=== PATIENT | female | born 1985 | race Caucasian/White ===

== ENCOUNTER → 2017-07-22 | Outpatient (CLI) | payer OTHER ==
--- NOTE | 2017-07-22 14:15 | US ---
EXAMINATION TYPE: US pelvic complete DATE OF EXAM: 07/22/2017 COMPARISON: NONE CLINICAL HISTORY: M93.8 Dysfunctional Uterine Bleeding. TECHNIQUE: Transabdominal (TA) Date of LMP: 07/10/17 EXAM MEASUREMENTS: Uterus: 9.3 x 4.0 x 5.7 cm Endometrial Stripe: 0.6 cm Right Ovary: 2.7 x 1.4 x 1.5 cm Left Ovary: 2.4 x 2.0 x 1.8 cm 1. Uterus: Anteverted, somewhat heterogeneous, nabothian cysts noted in cervix 2. Endometrium: wnl 3. Right Ovary: wnl 4. Left Ovary: wnl 5. Bilateral Adnexa: wnl 6. Posterior cul-de-sac: wnl IMPRESSION: No significant finding on transabdominal pelvic ultrasound is seen to account for patient 's symptoms.
[2017-07-22 15:55] LABS: T4, Free (Free Thyroxine) 1.05 ng/dL (0.78-2.19)
== END | disposition home or self-care (01) ==
LOC: RADUSWWP 13:28
PROVIDERS: ATTEND Obstetrics & Gynecology
DX: N93.8 Other specified abnormal uterine and vaginal bleeding (principal)
CPT/HCPCS: 36415; 76856; 84439; 84443

== ENCOUNTER → 2018-01-25 | Outpatient (CLI) | payer BC ==
[2018-01-25 10:56] LABS: Basophils % (A) 1 %; Eosinophils # (A) 0.1 k/uL (0-0.7); Eosinophils % (A) 2 %; HCT 40.3 % (34.0-46.0); HGB 13.5 gm/dL (11.4-16.0); Lymphocytes # (A) 1.2 k/uL (1.0-4.8); Lymphocytes % (A) 18 %; MCH 29.5 pg (25.0-35.0); MCHC 33.6 g/dL (31.0-37.0); MCV 87.7 fL (80.0-100.0); Mean Platelet Volume 6.3; Monocytes # (A) 0.2 k/uL (0-1.0); Monocytes % (A) 4 %; Neutrophils # (A) 5.1 k/uL (1.3-7.7); Neutrophils % (A) 75 %; Platelet Count 262 k/uL (150-450); RBC 4.59 m/uL (3.80-5.40); RDW 12.7 % (11.5-15.5); WBC 6.8 k/uL (3.8-10.6)
[2018-01-25 10:59] LABS: Anion Gap 12 mmol/L; Blood Urea Nitrogen 8 mg/dL (7-17); Calcium 9.7 mg/dL (8.4-10.2); Carbon Dioxide 23 mmol/L (22-30); Chloride 104 mmol/L (98-107); Glucose 131 mg/dL (74-99); Potassium 3.7 mmol/L (3.5-5.1); Sodium 139 mmol/L (137-145)
== END | disposition home or self-care (01) ==
LOC: LABPAT 09:42
PROVIDERS: ATTEND Obstetrics & Gynecology
DX: Z01.812 Encounter for preprocedural laboratory examination (principal); Z01.818 Encounter for other preprocedural examination
CPT/HCPCS: 80048; 85025; 86850; 86900; 86901

== ENCOUNTER 2018-02-02 05:42 | Observation (INO) | payer BC ==
[2018-01-30 11:27] VITALS: BMI 31.1
--- NOTE | 2018-02-01 16:45 | P.HPOB ---
History of Present Illness H&P Date: 02/01/18 Chief Complaint: irregular menses and vaginal prolapse 32 year old presents for TLH with da matt possible anterior/posterior repair and diagnostic cystoscopy. Review of Systems All systems: negative Constitutional: Denies chills, Denies fever Eyes: denies blurred vision, denies pain Ears, nose, mouth and throat: Denies headache, Denies sore throat Cardiovascular: Denies chest pain, Denies shortness of breath Respiratory: Denies cough Gastrointestinal: Denies abdominal pain, Denies diarrhea, Denies nausea, Denies vomiting Genitourinary: Denies dysuria, Denies hematuria Musculoskeletal: Denies myalgias Integumentary: Denies pruritus, Denies rash Neurological: Denies numbness, Denies weakness Psychiatric: Denies anxiety, Denies depression Endocrine: Denies fatigue, Denies weight change Past Medical History Past Medical History: No Reported History Additional Past Medical History / Comment(s): She has had 4 pregancies with 3 normal vaginal deliveries History of Any Multi-Drug Resistant Organisms: None Reported Additional Past Surgical History / Comment(s): Dilation and Curettage Past Anesthesia/Blood Transfusion Reactions: No Reported Reaction Past Psychological History: No Psychological Hx Reported Smoking Status: Never smoker Past Alcohol Use History: None Reported Past Drug Use History: None Reported - Past Family History Mother Family Medical History: No Reported History Medications and Allergies Home Medications Medication Instructions Recorded Confirmed Type No Known Home Medications 04/22/14 01/30/18 History Allergies Allergy/AdvReac Type Severity Reaction Status Date / Time No Known Allergies Allergy Verified 04/22/14 14:01 Exam Osteopathic Statement: *. No significant issues noted on an osteopathic structural exam other than those noted in the History and Physical/Consult. Heart: RRR Lungs: CTAB Abdomen: soft, nontender Extremeties: neg miguel ángel's Assessment and Plan (1) Irregular menses Status: Acute Code(s): N92.6 - IRREGULAR MENSTRUATION, UNSPECIFIED SNOMED Code(s): 35697705 (2) Vaginal prolapse Status: Acute Code(s): N81.10 - CYSTOCELE, UNSPECIFIED SNOMED Code(s): 418819700 Plan: 1. TLH with da matt, possible anterior/posterior repair, diagnostic cystoscopy
[~2018-02-02 05:42] MED LIST: ceFAZolin IN SWFI 2 GM/20 ML SYRINGE IVP ONE
[2018-02-02] MEDS ORDERED: LIDOCAINE 1% 20 ML VIAL (10MG/ML) FOR IV START INTRADERMA PRN (05:43)
[2018-02-02] MEDS ORDERED: SCOPOLAMINE 1.5MG/72HR PATCH TRANSDERM ONE (05:43)
[2018-02-02] MEDS ORDERED: MIDAZOLAM 2 MG/2 ML VIAL IV PRN (05:43)
[2018-02-02] MEDS ORDERED: DEXAMETHASONE SOD PHOSPHATE 10 MG/ML 1 ML VIAL IV ONE (05:43)
[2018-02-02] MEDS ORDERED: ONDANSETRON 4 MG/2 ML VIAL IVP ONE ×2 (05:43→09:56)
[2018-02-02] MEDS: LACTATED RINGERS 1,000 ML IV SCH ×4 (06:26→20:30)
[2018-02-02] MEDS ORDERED: LACTATED RINGERS 1,000 ML IV ONE (08:21)
[2018-02-02] MEDS ORDERED: BACITRACIN 500 UNIT/GM OINT 28.4 GM TUBE TOPICAL ONE ×2 (08:29→09:04)
[2018-02-02] MEDS ORDERED: VASOPRESSIN 20 UNIT/ML 1 ML VIAL SQ ONE ×2 (09:02)
[2018-02-02] MEDS: HYDROmorphone 0.5 MG/0.5 ML SYRINGE IVP PRN ×4 (09:54→10:20)
[2018-02-02] MEDS ORDERED: METOCLOPRAMIDE 5 MG/ML 2 ML VIAL IVP PRN (10:33)
[2018-02-02] MEDS ORDERED: Acetaminophen-Codeine 300-30mg TAB PO PRN (10:33)
[2018-02-02] MEDS ORDERED: ZOLPIDEM 5 MG TAB PO PRN (10:33)
[2018-02-02] MEDS ORDERED: diphenhydrAMINE 50 MG/ML 1 ML VIAL IVP PRN (10:33)
[2018-02-02] MEDS ORDERED: SIMETHICONE 80 MG CHEWABLE PO PRN (10:33)
--- NOTE | 2018-02-02 12:46 | P.OP ---
Date of Procedure: 02/02/18 Preoperative Diagnosis: 1. menorrhagia 2. uterine prolapse, rectocele Postoperative Diagnosis: same Procedure(s) Performed: TLH with da cindi, posterior repair, diagnostic cystoscopy Anesthesia: NILSA Surgeon: Magda Polk Biology Lecturer #1: Adam James Estimated Blood Loss (ml): 75 IV fluids (ml): 1,500 Urine output (ml): 300 Pathology: other (uterus, cervix, vaginal mucosa) Condition: stable Disposition: PACU Operative Findings: normal uterus, tubes and ovaries, rectocele Description of Procedure: Patient taken the operating room where general anesthesia was obtained without difficulty. She is prepped and draped in normal sterile fashion dorsal lithotomy position, legs placed in the Jose stirrups. Weighted speculum placed in the vagina and the anterior lip the cervix was grasped with single- tooth tenaculum. The uterus sounded to 9 cm and the cervix diameter was 3 cm. The appropriate manipulator tip and ring were placed on the Mariajose manipulator. The Mariajose manipulator was then placed in the uterus. Jamison catheter was also placed. Attention was then turned to the abdomen and gloves were changed. A 5 mm supraumbilical incision was made the scalpel and a 5 mm optical trocar was placed under direct visualization. 10 cm to the right of this and 2 cm down a 5 mm incision was made and 8 mm da Cindi port was placed under direct visualization. Same measurements on the opposite side of the patient's abdomen , the 5 mm incision was made and 8 mm da Cindi port was placed under direct visualization. In the left upper quadrant a 10 mm incision was made and a 10 mm optical trocar was placed under direct visualization. The 5 mm optical trocar was then replaced with the 8 mm da Cindi camera port. The robot was docked on patient's right side. The camera was introduced and then the monopolar curved scissor and [place] bipolar placed under direct visualization. I broke scrub and went to the physician console. The left utero -ovarian ligament was cauterized with the [place] bipolar and cut with monopolar curved scissors. The left round ligament was cauterized with the [place] bipolar and cut with monopolar curved scissors. The posterior leaf of the broad ligament was taken down using the monopolar curved scissors. Anterior leaf of the broad ligament was then taken down using the monopolar curved scissors. The uterine artery was cauterized with the [place] bipolar and cut with monopolar curved scissors. The bladder flap was then started using the monopolar curved scissors. Attention was then turned to the right side of the patient's anatomy and the right utero-ovarian ligament was cauterized with the [place] bipolar and cut with monopolar curved scissors. The right round ligament was cauterized with the [place] bipolar and cut with monopolar curved scissors. Posterior leaf of the broad ligament was taken down using the monopolar curved scissors and the anterior leaf was taken down using the monopolar curved scissors. The uterine artery was cauterized the [place] bipolar cut with monopolar curved scissors. The bladder flap was then finished on this side. Anterior colpotomy was made using the monopolar curved scissors. The rest of the uterus was from the vaginal cuff by following the ring around with the monopolar curved scissors through the uterosacral ligaments back to the anterior portion. Once the uterus and cervix were amputated they were pulled through the vaginal cuff. Hemostasis was assured. The instruments were changed for the Cardier forcep and the beatriz suture cut. The vaginal cuff was then closed using O stratafix barbed suture in a running fashion. Hemostasis was again assured and the pelvis was irrigated. All instruments were removed from the abdomen and the robot was undocked. I scrubbed back in. I infiltrated the posterior vaginal mucosa with diluted vasopressin. Ingress the posterior vaginal mucosa with Allis clamps. Incision was made along the posterior vaginal mucosa. Was then underscored with the Metzenbaums and the vaginal mucosa was peeled off the underlying fascia and a blunt manner. Nola plication stitches were then placed. The excess vaginal mucosa was cut with the Metzenbaums. Mucosa was then closed with 0 Vicryl in a running locked fashion. Hemostasis was assured. I then performed a cystoscopy. There were jets from both ureteral orifices. The abdominal incisions were closed with 4-0 Vicryl in a subcuticular fashion. Patient tolerated the procedure well, sponge and instrument counts correct 2 and she was taken to recovery room in stable condition condition.
[2018-02-02] MEDS: KETOROLAC 30 MG/ML 1 ML VIAL IVP PRN (12:49)
[2018-02-02] MEDS: ONDANSETRON 4 MG/2 ML VIAL IVP PRN ×2 (14:00→20:27)
[2018-02-02] MEDS: Acetaminophen-Codeine 300-30mg TAB PO PRN (20:31)
[2018-02-02] MEDS: SENNOSIDES-DOCUSATE SODIUM 1 EACH TAB PO SCH (22:18)
[2018-02-03] MEDS: KETOROLAC 30 MG/ML 1 ML VIAL IVP PRN ×2 (01:16→08:01)
[2018-02-03] MEDS: ONDANSETRON 4 MG/2 ML VIAL IVP PRN (02:20)
[2018-02-03 06:15] VITALS: RESP 18
[2018-02-03 06:41] LABS: Basophils % (A) 0 %; Eosinophils # (A) 0.1 k/uL (0-0.7); Eosinophils % (A) 1 %; HCT 35.6 % (34.0-46.0); Lymphocytes # (A) 1.2 k/uL (1.0-4.8); Lymphocytes % (A) 18 %; MCH 29.4 pg (25.0-35.0); MCHC 33.7 g/dL (31.0-37.0); MCV 87.3 fL (80.0-100.0); Mean Platelet Volume 6.3; Monocytes # (A) 0.3 k/uL (0-1.0); Monocytes % (A) 5 %; Neutrophils # (A) 4.9 k/uL (1.3-7.7); Neutrophils % (A) 75 %; Platelet Count 251 k/uL (150-450); RBC 4.07 m/uL (3.80-5.40); RDW 13.2 % (11.5-15.5); WBC 6.6 k/uL (3.8-10.6)
[2018-02-03] MEDS ORDERED: NEOSTIGMINE 1 MG/ML 10 ML VIAL ONE (07:11)
[2018-02-03] MEDS ORDERED: fentaNYL (PF) 50 MCG/ML 2 ML AMP ONE (07:11)
[2018-02-03] MEDS ORDERED: MIDAZOLAM 2 MG/2 ML VIAL ONE (07:11)
[2018-02-03] MEDS ORDERED: LIDOCAINE 1% INJ 10MG/ML (20 ML MDV) ONE (07:11)
[2018-02-03] MEDS ORDERED: HYDROmorphone (PF) 1 MG/ML ONE (07:11)
[2018-02-03] MEDS ORDERED: GLYCOPYRROLATE 0.2 MG/ML 2 ML VIAL ONE (07:11)
[2018-02-03] MEDS ORDERED: PROPOFOL 10 MG/ML 20 ML VIAL IV ONE (07:11)
[2018-02-03] MEDS ORDERED: ROCURONIUM BROMIDE 10 MG/ML 10 ML VIAL IV ONE (07:11)
[2018-02-03] MEDS ORDERED: ePHEDrine SULFATE/0.9% NACL/PF 50 MG/5 ML SYRINGE IV ONE (07:11)
[2018-02-03] MEDS: Acetaminophen-Codeine 300-30mg TAB PO PRN (08:01)
[2018-02-03 08:25] VITALS: BP 111/71; PULSE 106; TEMP 98
[2018-02-03] MEDS: LACTATED RINGERS 1,000 ML IV SCH (08:25)
--- NOTE | 2018-02-03 08:34 | P.DS ---
Providers Date of admission: 02/02/18 15:48 Expected date of discharge: 02/03/18 Attending physician: Magda Polk Primary care physician: Stella Luo - Discharge Diagnosis(es) (1) Irregular menses Current Visit: No Status: Resolved (2) Vaginal prolapse Current Visit: No Status: Resolved Hospital Course: Patient underwent total laparoscopic hysterectomy and rectocele repair. Her postoperative course was uncomplicated. She'll be discharged home postoperative day #1 in stable condition to follow-up with me in 3 weeks. Discharge instructions were reviewed with patient and she expressed complete understanding. She denies nausea, vomiting, chest pain, shortness of breath or calf pain. She is voiding and ambulating without difficulty and tolerating a regular diet. Plan - Discharge Summary Discharge Rx Participant: No New Discharge Prescriptions: New Acetaminophen-Codeine 300-30mg [Tylenol w/codeine #3] 2 each PO Q6HR PRN #24 tab PRN Reason: Severe Pain Ibuprofen [Motrin] 600 mg PO Q6HR PRN #30 tab PRN Reason: Mild Pain Or Fever >= 100.5 Discharge Medication List Acetaminophen-Codeine 300-30mg [Tylenol w/codeine #3] 2 each PO Q6HR PRN #24 tab 02/03/18 [Rx] Ibuprofen [Motrin] 600 mg PO Q6HR PRN #30 tab 02/03/18 [Rx] Follow up Appointment(s)/Referral(s): Magda Polk DO [Doctor of Osteopathic Medicine] - 3 Weeks Discharge Disposition: HOME SELF-CARE
[2018-02-03] MEDS: SENNOSIDES-DOCUSATE SODIUM 1 EACH TAB PO SCH (09:10)
[2018-02-03] MEDS ORDERED: ACETAMINOPHEN TAB 325 MG TAB PO PRN (09:43)
== END 2018-02-03 10:50 | disposition home or self-care (01) ==
LOC: OR 05:42 → 6PED 09:34 → OR 15:53
PROVIDERS: ADMIT Obstetrics & Gynecology; ATTEND Obstetrics & Gynecology
DX: N80.0 Endometriosis of uterus (principal); N81.4 Uterovaginal prolapse, unspecified; N92.0 Excessive and frequent menstruation with regular cycle
CPT/HCPCS: 57250; 58570; S2900; 81025; 85025; 86850; 86900; 86901; 88302; 88305; 88307